=== PATIENT | female | born 1995 | race Caucasian/White ===

== ENCOUNTER 2017-07-08 11:56 | Emergency (ER) | payer SELFPAY ==
[2017-07-08 12:49] VITALS: BP 107/70
[2017-07-08 14:01] LABS: Bacteria,Urine 2+ /HPF (Negative); Bilirubin,Urine NEG (Negative); Blood,Urine NEG (Negative); Ketones,Urine 20 mg/dL (Negative); Leukocyte Esterase,Urine SM (Negative); Mucus,Urine 3+ /HPF; Nitrite,Urine NEG (Negative); Protein,Urine <15 mg/dL mg/dL (Negative); Urobilinogen,Urine < 2.0 mg/dL (<2.0)
== END 2017-07-08 13:40 | disposition left against medical advice (07) ==
LOC: ED 11:56
DX: Z53.21 Procedure and treatment not carried out due to patient leaving prior to being seen by health care provider (principal)
CPT/HCPCS: 81001

== ENCOUNTER 2018-12-20 18:59 | Emergency (ER) | payer OTHER ==
[2018-12-20 19:35] VITALS: BP 134/83
--- NOTE | 2018-12-20 19:35 | Emergency Department Report ---
Chief Complaint: Abdominal Pain Stated Complaint: LOWER ABD PAIN Time Seen by Provider: 12/20/18 19:32 - HPI History of Present Illness: This is a 23 y.o. female that presents with lower abdominal pain prior to LMP. Patient reports pain as cramping sensation. LMP 12/15/18, 0. - ROS Review of Systems: lower abdominal pain - Exam Vital Signs: Vital Signs 12/20/18 19:32 Temperature 98.5 F Pulse Rate 87 Respiratory 16 Rate Blood Pressure 134/83 O2 Sat by Pulse 100 Oximetry MSE screening note: Focused history and physical exam performed. Due to findings the following was ordered: labs fast track for further evaluation. ED Disposition for MSE Condition: Stable Instructions: Abdominal Pain (ED)
[2018-12-20 20:03] LABS: Basophils % (Auto) 0.7 % (0.0-1.8); Eosinophils # (Auto) 0.1 K/mm3 (0.0-0.4); Eosinophils % (Auto) 1.8 % (0.0-4.3); Hematocrit 39.9 % (30.3-42.9); Hemoglobin 13.4 gm/dl (10.1-14.3); Lymphocytes % (Auto) 28.1 % (13.4-35.0); Mean Corpuscular HGB Conc 33 % (30-34); Mean Corpuscular Volume 86 fl (79-97); Monocytes # (Auto) 0.5 K/mm3 (0.0-0.8); Monocytes % (Auto) 6.7 % (0.0-7.3); Platelet Count 290 K/mm3 (140-440); Red Blood Count 4.63 M/mm3 (3.65-5.03); Red Cell Distribution Width 13.9 % (13.2-15.2)
[2018-12-20 20:23] LABS: Alanine Aminotransferase 12 units/L (7-56); Albumin 4.3 g/dL (3.9-5); BUN/Creatinine Ratio 13; Blood Urea Nitrogen 10 mg/dL (7-17); Calcium 9.5 mg/dL (8.4-10.2); Hemolysis Index 5
[2018-12-20 21:14] LABS: Bilirubin,Urine NEG (Negative); Blood,Urine LG (Negative); Color,Urine Amber (Yellow); Mucus,Urine 2+ /HPF; Urobilinogen,Urine < 2.0 mg/dL (<2.0)
[2018-12-20 21:15] LABS: HCG Qualitative,Urine Negative (Negative); RBC,Urine > 182.0 /HPF (0.0-6.0)
--- NOTE | 2018-12-20 22:54 | Emergency Department Report ---
ED Female HPI - General Chief complaint: Abdominal Pain Stated complaint: LOWER ABD PAIN Time Seen by Provider: 12/20/18 19:32 Source: patient Mode of arrival: Ambulatory Limitations: No Limitations - History of Present Illness Initial comments: This is a 23-year-old female presents to the ED stating that she has makes rinsing urinary frequency with some slight dysuria for the past week. Patient also states that she has some spotting vaginally but she chews that her cycle 2 days ago. Sign she denies nausea vomiting, fever, pelvic pain, abnormal bleeding MD Complaint: dysuria - Related Data Previous Rx's Medication Instructions Recorded Last Taken Type Fluconazole [Diflucan TAB] 150 mg PO ONCE #1 tablet 12/20/18 Unknown Rx Sulfamethoxazole/Trimethoprim 1 each PO BID #14 tablet 12/20/18 Unknown Rx [Bactrim DS TAB] Allergies Allergy/AdvReac Type Severity Reaction Status Date / Time No Known Allergies Allergy Unverified 07/08/17 12:50 ED Review of Systems ROS: Stated complaint: LOWER ABD PAIN Other details as noted in HPI Comment: All other systems reviewed and negative ED Past Medical Hx - Past Medical History Previous Medical History?: No - Surgical History Past Surgical History?: No - Social History Smoking Status: Current Every Day Smoker Substance Use Type: Alcohol - Medications Home Medications: Home Medications Medication Instructions Recorded Confirmed Last Taken Type Fluconazole [Diflucan TAB] 150 mg PO ONCE #1 tablet 12/20/18 Unknown Rx Sulfamethoxazole/Trimethoprim 1 each PO BID #14 tablet 12/20/18 Unknown Rx [Bactrim DS TAB] ED Physical Exam - General Limitations: No Limitations General appearance: alert, in no apparent distress - Head Head exam: Present: atraumatic, normocephalic - Eye Eye exam: Present: normal appearance - ENT ENT exam: Present: mucous membranes moist - Neck Neck exam: Present: normal inspection - Respiratory Respiratory exam: Present: normal lung sounds bilaterally. Absent: respiratory distress - Cardiovascular Cardiovascular Exam: Present: regular rate, normal rhythm. Absent: systolic murmur, diastolic murmur, rubs, gallop - GI/Abdominal GI/Abdominal exam: Present: soft, normal bowel sounds. Absent: distended, tenderness, guarding, rebound - Extremities Exam Extremities exam: Present: normal inspection - Back Exam Back exam: Present: normal inspection - Neurological Exam Neurological exam: Present: alert, oriented X3 - Psychiatric Psychiatric exam: Present: normal affect, normal mood - Skin Skin exam: Present: warm, dry, intact, normal color. Absent: rash ED Course Vital Signs 12/20/18 19:32 Temperature 98.5 F Pulse Rate 87 Respiratory 16 Rate Blood Pressure 134/83 O2 Sat by Pulse 100 Oximetry ED Medical Decision Making - Lab Data Result diagrams: 12/20/18 19:52 12/20/18 19:52 Laboratory Tests 12/20/18 12/20/18 12/20/18 19:52 19:52 20:45 WBC 7.2 RBC 4.63 Hgb 13.4 Hct 39.9 MCV 86 MCH 29 MCHC 33 RDW 13.9 Plt Count 290 Lymph % (Auto) 28.1 [place] % (Auto) 6.7 Eos % (Auto) 1.8 Baso % (Auto) 0.7 Lymph # 2.0 [place] # 0.5 Eos # 0.1 Baso # 0.0 Seg Neutrophils % 62.7 Seg Neutrophils # 4.5 Sodium 140 Potassium 4.1 Chloride 102.6 Carbon Dioxide 27 Anion Gap 15 BUN 10 Creatinine 0.8 Estimated GFR > 60 BUN/Creatinine Ratio 13 Glucose 96 Calcium 9.5 Total Bilirubin 0.50 AST 17 ALT 12 Alkaline Phosphatase 82 Total Protein 7.9 Albumin 4.3 Albumin/Globulin Ratio 1.2 Urine Color Azucena Urine Turbidity Cloudy Urine pH 5.0 Ur Specific [place] 1.031 H Urine Protein 100 mg/dl Urine Glucose (UA) Neg Urine Ketones Neg Urine Blood Lg Urine Nitrite Neg Urine Bilirubin Neg Urine Urobilinogen < 2.0 Ur Leukocyte Esterase Mod Urine WBC (Auto) 97.0 H Urine RBC (Auto) > 182.0 U Epithel Cells (Auto) 3.0 Urine Mucus 2+ Urine Yeast (Budding) 3+ Urine HCG, Qual Negative - Medical Decision Making 23-year-old male presents with a urinary tract infection ED course: Patient received an antibiotic dose and Motrin during ED stay CBC, CMP within normal limits I discussed this findings with the patient. Patient is in no acute distress, patient also has on instructions were given to her. Discussed follow-up with primary care physician. Critical care attestation.: If time is entered above; I have spent that time in minutes in the direct care of this critically ill patient, excluding procedure time. ED Disposition Clinical Impression: UTI (urinary tract infection) Disposition: DC- TO HOME OR SELFCARE Is pt being admited?: No Does the pt Need Aspirin: No Condition: Stable Instructions: Abdominal Pain (ED), Urinary Tract Infection in Women (ED) Additional Instructions: Make sure to follow up with the primary care physician as discussed. Take all your medications as you've been prescribed. If you have any worsening symptoms or develop new symptoms please return to ED immediately. Prescriptions: Sulfamethoxazole/Trimethoprim [Bactrim DS TAB] 1 each PO BID #14 tablet Fluconazole [Diflucan TAB] 150 mg PO ONCE #1 tablet Referrals: PRIMARY CAREMD [Primary Care Provider] - 3-5 Days ALIYAH DIEHL MD [Referring] - 3-5 Days [facility] [Outside] - 3-5 Days [facility] [Outside] - 3-5 Days Forms: Accompanied Note, Work/School Release Form(ED) Time of Disposition: 23:06
== END 2018-12-20 23:17 | disposition home or self-care (01) ==
LOC: ED 18:59
DX: N39.0 Urinary tract infection, site not specified (principal); F17.200 Nicotine dependence, unspecified, uncomplicated
CPT/HCPCS: 36415; 80053; 81001; 81025; 85025

== ENCOUNTER 2019-01-17 20:37 | Emergency (ER) | payer OTHER ==
--- NOTE | 2019-01-17 21:27 | Emergency Department Report ---
Blank Doc - Documentation Documentation: This is a 23-year-old female that presents with left hand lac. This initial assessment/diagnostic orders/clinical plan/treatment(s) is/are subject to change based on patient's health status, clinical progression and re- assessment by fellow clinical providers in the ED. Further treatment and workup at subsequent clinical providers discretion. Patient/guardians urged not to elope from the ED as their condition may be serious if not clinically assessed and managed. Initial orders include: 1- Patient sent to [facility] for further evaluation and treatment
[2019-01-17 21:29] VITALS: BP 123/60
[2019-01-17] MEDS ORDERED: KEFLEX PO ONE (23:56)
[2019-01-17] MEDS ORDERED: NORCO 5/325 PO ONE (23:56)
[2019-01-17] MEDS ORDERED: BOOSTRIX IM ONE (23:56)
--- NOTE | 2019-01-18 01:21 | Emergency Department Report ---
ED Laceration HPI - HPI Chief Complaint: Wound/Laceration Stated Complaint: LEFT HAND LAC Time Seen by Provider: 01/17/19 21:27 Location: Upper Extremity Tetanus Status: Not up to Date (good) Laceration Symptoms: Yes Pain, No Foreign Body Sensation, No Numbness, No Weakness Other History: This is a 23-year-old female that presents with left hand lac. left index finger superficial laceration versus box toe flanger stitchdowns, no never tendon or mucle involvment ED Review of Systems ROS: Stated complaint: LEFT HAND LAC Other details as noted in HPI Constitutional: denies: chills, fever Eyes: denies: eye pain, eye discharge, vision change ENT: denies: ear pain, throat pain Respiratory: denies: cough, shortness of breath, wheezing Cardiovascular: denies: chest pain, palpitations Endocrine: no symptoms reported Gastrointestinal: denies: abdominal pain, nausea, diarrhea Genitourinary: denies: urgency, dysuria, discharge Musculoskeletal: denies: back pain, joint swelling, arthralgia Skin: other (laceration left index finger ). denies: rash, lesions Neurological: denies: headache, weakness, paresthesias Psychiatric: denies: anxiety, depression Hematological/Lymphatic: as per HPI (via). denies: easy bleeding, easy bruising ED Past Medical Hx - Past Medical History Previous Medical History?: No - Surgical History Past Surgical History?: No - Social History Smoking Status: Current Every Day Smoker Substance Use Type: Marijuana - Medications Home Medications: Home Medications Medication Instructions Recorded Confirmed Last Taken Type Fluconazole [Diflucan TAB] 150 mg PO ONCE #1 tablet 12/20/18 Unknown Rx Sulfamethoxazole/Trimethoprim 1 each PO BID #14 tablet 12/20/18 Unknown Rx [Bactrim DS TAB] cephALEXin [Keflex] 500 mg PO Q8HR 10 Days #30 cap 01/18/19 Unknown Rx traMADol [Ultram] 50 mg PO Q6HR PRN #12 tablet 01/18/19 Unknown Rx Laceration Physical Exam - Exam General: Vital signs noted. No distress. Alert and acting appropriately. Wound Length (cm): 3 (superficial laceration) Laceration Location: Upper Extremity Laceration Exam: Yes Normal Distal CMS, No Foreign Body, No Exposed Tendon, Vessel, or Nerve, No Tendon Injury ED Course Vital Signs 01/17/19 21:27 Temperature 98.3 F Pulse Rate 79 Respiratory 14 Rate Blood Pressure 123/60 O2 Sat by Pulse 100 Oximetry - Laceration /Wound Repair Left Volar Finger Wound Location: upper extremity Wound Length (cm): 3 Wound's Depth, Shape: superficial Wound Explored: clean Irrigated w/ Saline (ccs): 20 Betadine Prep?: Yes Wound Debrided: none required Wound Repaired With: Steri-strips, Dermabond Progress: all bleeding controlled edges well approximated pt given wound care instructions verbalized understanding of same. ED Medical Decision Making - Medical Decision Making superficial laceration repair see procedure note dc to home with rx for keflex, ultram follow up with pcp in 2 days for wound check pt verbalized agreement and understanding of same dc to home in stable condition at this time. Critical care attestation.: If time is entered above; I have spent that time in minutes in the direct care of this critically ill patient, excluding procedure time. ED Disposition Clinical Impression: Laceration of finger of left hand Qualifiers: Encounter type: initial encounter Finger: index finger Damage to nail status: without damage Foreign body presence: without foreign body Qualified Code(s): S61.211A - Laceration without foreign body of left index finger without damage to nail, initial encounter Disposition: DC-01 TO HOME OR SELFCARE Is pt being admited?: No Does the pt Need Aspirin: No Condition: Stable Instructions: Laceration (ED), Skin Adhesive Care (ED) Prescriptions: cephALEXin [Keflex] 500 mg PO Q8HR 10 Days #30 cap traMADol [Ultram] 50 mg PO Q6HR PRN #12 tablet PRN Reason: Pain Referrals: [facility] [Outside] - 3-5 Days Forms: Work/School Release Form(ED) Time of Disposition: 01:25
== END 2019-01-18 01:30 | disposition home or self-care (01) ==
LOC: ED 20:37
DX: S61.211A Laceration without foreign body of left index finger without damage to nail, initial encounter (principal); F17.200 Nicotine dependence, unspecified, uncomplicated; F12.10 Cannabis abuse, uncomplicated; W45.8XXA Other foreign body or object entering through skin, initial encounter; Y93.89 Activity, other specified; Y92.89 Other specified places as the place of occurrence of the external cause; Y99.8 Other external cause status
CPT/HCPCS: 90471; 90715; 99282

== ENCOUNTER 2019-08-19 17:00 | Emergency (ER) | payer SELFPAY ==
[2019-08-19 18:45] VITALS: BP 112/50
--- NOTE | 2019-08-19 18:46 | Event Note ---
ED Screening Note Date of service: 08/19/19 Time: 18:45 ED Screening Note: Pt complains of left finger pain x 2 days +paronychia noted This initial assessment/diagnostic orders/clinical plan/treatment(s) is/are subject to change based on patients health status, clinical progression and re-assessment by fellow clinical providers in the ED. Further treatment and workup at subsequent clinical providers discretion. Patient/guardian urged not to elope from the ED as their condition may be serious if not clinically assessed and managed. Initial orders include:
[2019-08-19] MEDS ORDERED: IBUPROFEN 800 MG TAB PO ONE (20:35)
[2019-08-19] MEDS ORDERED: CLINDAMYCIN 300 MG CAP PO ONE (20:35)
[2019-08-19] MEDS ORDERED: traMADol 50 MG TAB PO ONE (20:36)
--- NOTE | 2019-08-19 20:40 | Emergency Department Report ---
ED Extremity Problem HPI - General Chief complaint: Extremity Problem,Nontraumatic Stated complaint: R FINGER SWOLLEN Time Seen by Provider: 08/19/19 18:45 Source: patient Mode of arrival: Ambulatory Limitations: No Limitations - History of Present Illness Initial comments: This is a 24-year-old asthmatic female who had her right index finger caught in a door 2 days ago. The patient states since then she has had some increased pain and swelling to the distal tip around the nail bed. Patient states that this point the pain is 10 out of 10 as aching and throbbing. She denies fevers and chills cough, congestion at this time. Patient has full range of motion to her finger. - Related Data Previous Rx's Medication Instructions Recorded Last Taken Type Fluconazole [Diflucan TAB] 150 mg PO ONCE #1 tablet 12/20/18 Unknown Rx Sulfamethoxazole/Trimethoprim 1 each PO BID #14 tablet 12/20/18 Unknown Rx [Bactrim DS TAB] cephALEXin [Keflex] 500 mg PO Q8HR 10 Days #30 cap 01/18/19 Unknown Rx traMADol [Ultram] 50 mg PO Q6HR PRN #12 tablet 01/18/19 Unknown Rx Clindamycin [Clindamycin CAP] 300 mg PO Q8H #21 cap 08/19/19 Unknown Rx Ibuprofen [Motrin 600 MG tab] 600 mg PO Q8H PRN #20 tablet 08/19/19 Unknown Rx traMADol [Ultram] 50 mg PO Q6HR PRN #12 tablet 08/19/19 Unknown Rx Allergies Allergy/AdvReac Type Severity Reaction Status Date / Time No Known Allergies Allergy Unverified 07/08/17 12:50 ED Review of Systems ROS: Stated complaint: R FINGER SWOLLEN Other details as noted in HPI Comment: All other systems reviewed and negative ED Past Medical Hx - Past Medical History Previous Medical History?: No - Surgical History Past Surgical History?: No - Social History Smoking Status: Never Smoker Substance Use Type: Alcohol - Medications Home Medications: Home Medications Medication Instructions Recorded Confirmed Last Taken Type Fluconazole [Diflucan TAB] 150 mg PO ONCE #1 tablet 12/20/18 Unknown Rx Sulfamethoxazole/Trimethoprim 1 each PO BID #14 tablet 12/20/18 Unknown Rx [Bactrim DS TAB] cephALEXin [Keflex] 500 mg PO Q8HR 10 Days #30 cap 01/18/19 Unknown Rx traMADol [Ultram] 50 mg PO Q6HR PRN #12 tablet 01/18/19 Unknown Rx Clindamycin [Clindamycin CAP] 300 mg PO Q8H #21 cap 08/19/19 Unknown Rx Ibuprofen [Motrin 600 MG tab] 600 mg PO Q8H PRN #20 tablet 08/19/19 Unknown Rx traMADol [Ultram] 50 mg PO Q6HR PRN #12 tablet 08/19/19 Unknown Rx ED Physical Exam - General Limitations: No Limitations General appearance: alert, in no apparent distress - Head Head exam: Present: atraumatic, normocephalic - Eye Eye exam: Present: normal appearance, PERRL, EOMI - Neck Neck exam: Present: normal inspection, full ROM - Expanded Upper Extremity Exam Right Hand L/R Back: 1 - Mild erythema and swelling adjacent to the nail. There is a half a centimeter area of possible fluctuance. - Neurological Exam Neurological exam: Present: alert, oriented X3 - Psychiatric Psychiatric exam: Present: normal affect, normal mood - Skin Skin exam: Present: warm, dry, intact, normal color. Absent: rash ED Course Vital Signs 08/19/19 17:26 Temperature 98.5 F Pulse Rate 91 H Respiratory 16 Rate Blood Pressure 112/50 O2 Sat by Pulse 99 Oximetry ED Medical Decision Making - Medical Decision Making With early paronychia. Patient started on antibiotics given pain meds and she can continue warm water soaks. Critical care attestation.: If time is entered above; I have spent that time in minutes in the direct care of this critically ill patient, excluding procedure time. ED Disposition Clinical Impression: Paronychia Disposition: DC-01 TO HOME OR SELFCARE Is pt being admited?: No Does the pt Need Aspirin: No Condition: Stable Instructions: Paronychia (ED) Referrals: PRIMARY CARE, [Primary Care Provider] - 3-5 Days Forms: Work/School Release Form(ED) Time of Disposition: 20:39
== END 2019-08-19 21:18 | disposition home or self-care (01) ==
LOC: ED 17:00
DX: L03.011 Cellulitis of right finger (principal); Z79.899 Other long term (current) drug therapy

== ENCOUNTER 2021-12-18 17:51 | Emergency (ER) | payer SELFPAY ==
[2021-12-18] MEDS ORDERED: diazePAM 5 MG TAB PO ONE (23:01)
[2021-12-18] MEDS ORDERED: KETOROLAC 60 MG/2 ML INJ IM ONE (23:01)
[2021-12-18] MEDS ORDERED: dexAMETHasone 20 MG/5 ML VIAL IM ONE (23:01)
--- NOTE | 2021-12-18 23:50 | Emergency Department Report ---
ED Back Pain/Injury HPI - General Chief Complaint: Back Pain/Injury Stated Complaint: BACK PAIN Source: patient Limitations: No Limitations - History of Present Illness Initial Comments: Patient is a 26-year-old -Serbian female with a history of morbid obesity presents to the ED with complaint of acute onset persistent nontraumatic low back pain that radiates to the left leg for the last 12 hours. Patient states that she woke up with a low back pain over 12 hours ago and that the pain has been persistent and radiates to the left leg. Patient denies heavy lifting, fall, traumatic injury, chest pain or shortness of breath, abdominal pain, dysuria, urinary frequency and urgency, fever, chills, numbness and tingling or weakness of lower extremities bilaterally or saddle paresthesia. MD Complaint: back pain (low back pain radiating to left leg), other -: Sudden, hour(s) (12) Similar Symptoms Previously: No Place: home Radiation: left leg Severity: severe Severity scale (0 -10): 7 Quality: sharp, aching Consistency: constant Improves With: none Worsens With: movement, walking Context: turning/twisting Associated Symptoms: denies other symptoms. denies: confusion, weakness, numbness, difficulty walking, cough, difficulty urinating, diaphoresis, incontinence, fever/chills, headaches, abdominal pain, loss of appetite, nausea/vomiting, rash, shortness of breath, syncope - Related Data Previous Rx's Medication Instructions Recorded Last Taken Type Fluconazole (Nf) [Diflucan TAB] 150 mg PO ONCE #1 tablet 12/20/18 Unknown Rx Sulfamethoxazole/Trimethoprim 1 each PO BID #14 tablet 12/20/18 Unknown Rx [Bactrim DS TAB] cephALEXin [Keflex] 500 mg PO Q8HR 10 Days #30 cap 01/18/19 Unknown Rx Clindamycin [Clindamycin CAP] 300 mg PO Q8H #21 cap 08/19/19 Unknown Rx Ibuprofen [Motrin 600 MG tab] 600 mg PO Q8H PRN #20 tablet 08/19/19 Unknown Rx traMADoL [Ultram] 50 mg PO Q6HR PRN #12 tablet 08/19/19 Unknown Rx Ibuprofen [Motrin] 800 mg PO Q8HR PRN #30 tablet 12/18/21 Unknown Rx methOCARBAMOL [Robaxin TAB] 750 mg PO Q8H PRN #30 tab 12/18/21 Unknown Rx predniSONE [Deltasone] 60 mg PO QDAY #15 tab 12/18/21 Unknown Rx traMADoL [Ultram 50 MG tab] 50 mg PO Q6HR PRN #12 tablet 12/18/21 Unknown Rx Allergies Allergy/AdvReac Type Severity Reaction Status Date / Time No Known Allergies Allergy Verified 12/18/21 19:37 ED Review of Systems ROS: Stated complaint: BACK PAIN Other details as noted in HPI Constitutional: denies: chills, fever Eyes: denies: eye pain, eye discharge, vision change ENT: denies: ear pain, throat pain Respiratory: denies: cough, shortness of breath, wheezing Cardiovascular: denies: chest pain, palpitations Endocrine: no symptoms reported Gastrointestinal: denies: abdominal pain, nausea, diarrhea Genitourinary: denies: urgency, dysuria, discharge Musculoskeletal: back pain (lower back pain), arthralgia, myalgia. denies: joint swelling Skin: denies: rash, lesions Neurological: denies: headache, weakness, paresthesias Psychiatric: denies: anxiety, depression Hematological/Lymphatic: denies: easy bleeding, easy bruising ED Past Medical Hx - Past Medical History Previous Medical History?: Yes Additional medical history: Morbid obesity - Surgical History Past Surgical History?: No - Social History Smoking Status: Never Smoker Substance Use Type: Alcohol - Medications Home Medications: Home Medications Medication Instructions Recorded Confirmed Last Taken Type Fluconazole (Nf) [Diflucan TAB] 150 mg PO ONCE #1 tablet 12/20/18 Unknown Rx Sulfamethoxazole/Trimethoprim 1 each PO BID #14 tablet 12/20/18 Unknown Rx [Bactrim DS TAB] cephALEXin [Keflex] 500 mg PO Q8HR 10 Days #30 cap 01/18/19 Unknown Rx Clindamycin [Clindamycin CAP] 300 mg PO Q8H #21 cap 08/19/19 Unknown Rx Ibuprofen [Motrin 600 MG tab] 600 mg PO Q8H PRN #20 tablet 08/19/19 Unknown Rx traMADoL [Ultram] 50 mg PO Q6HR PRN #12 tablet 08/19/19 Unknown Rx Ibuprofen [Motrin] 800 mg PO Q8HR PRN #30 tablet 12/18/21 Unknown Rx methOCARBAMOL [Robaxin TAB] 750 mg PO Q8H PRN #30 tab 12/18/21 Unknown Rx predniSONE [Deltasone] 60 mg PO QDAY #15 tab 12/18/21 Unknown Rx traMADoL [Ultram 50 MG tab] 50 mg PO Q6HR PRN #12 tablet 12/18/21 Unknown Rx ED Physical Exam - General Limitations: No Limitations General appearance: alert, in no apparent distress - Head Head exam: Present: atraumatic, normocephalic, normal inspection - Eye Eye exam: Present: normal appearance, PERRL, EOMI Pupils: Present: normal accommodation - ENT ENT exam: Present: normal exam, normal orophraynx, mucous membranes moist, TM's normal bilaterally, normal external ear exam - Neck Neck exam: Present: normal inspection, full ROM - Respiratory Respiratory exam: Present: normal lung sounds bilaterally. Absent: respiratory distress, wheezes, rales, rhonchi, chest wall tenderness, accessory muscle use, decreased breath sounds, prolonged expiratory, other - Cardiovascular Cardiovascular Exam: Present: regular rate, normal rhythm, normal heart sounds. Absent: systolic murmur, diastolic murmur, rubs, gallop - GI/Abdominal GI/Abdominal exam: Present: soft, normal bowel sounds. Absent: tenderness, guarding, rebound, hyperactive bowel sounds, hypoactive bowel sounds, organomegaly, mass - Extremities Exam Extremities exam: Present: normal inspection, full ROM, normal capillary refill. Absent: tenderness, pedal edema, joint swelling, calf tenderness - Back Exam Back exam: Present: normal inspection, full ROM, tenderness (Palpable lumbosacral paraspinal musculoskeletal tenderness), muscle spasm, paraspinal tenderness. Absent: CVA tenderness (R), vertebral tenderness - Neurological Exam Neurological exam: Present: alert, oriented X3, CN II-XII intact, normal gait, reflexes normal - Psychiatric Psychiatric exam: Present: normal affect, normal mood - Skin Skin exam: Present: warm, dry, intact, normal color. Absent: rash ED Course Vital Signs 12/18/21 12/18/21 19:35 23:40 Temperature 98.1 F Pulse Rate 73 Respiratory 18 16 Rate Blood Pressure 126/75 [Left] O2 Sat by Pulse 100 Oximetry ED Medical Decision Making - Medical Decision Making This is a 26-year-old -Serbian female with a history of morbid obesity presents to the ED with complaint of acute onset persistent nontraumatic low back pain that radiates to the left leg for the last 12 hours. Patient states that she woke up with a low back pain over 12 hours ago and that the pain has been persistent and radiates to the left leg. In the ED, patient is alert and oriented x3 and is not in any distress. Patient was treated for pain in the ED and on reevaluation, patient's pain is well controlled medication. Patient was discharged home on pain medications and muscle relaxants and advised to follow- up with her primary care physician in 7 to 10 days for reevaluation or return to the ED immediately if symptoms get worse. - Differential Diagnosis muscle spasm; muscle strain; sciatica; Critical care attestation.: If time is entered above; I have spent that time in minutes in the direct care of this critically ill patient, excluding procedure time. ED Disposition Clinical Impression: Spasm of muscle of lower back, Strain of muscle, fascia and tendon of lower back, initial encounter Acute low back pain with left-sided sciatica Qualifiers: Back pain laterality: left Qualified Code(s): M54.42 - Lumbago with sciatica, left side Disposition: 01 HOME / SELF CARE / HOMELESS Is pt being admited?: No Does the pt Need Aspirin: No Condition: Stable Instructions: Muscle Cramps and Spasms, [id number], Muscle Strain, Easy-to- Read, Sciatica, [id number], Low Back Sprain or Strain Rehab-SportsMed Additional Instructions: Your symptoms are likely due to musculoskeletal pain, and characterized by s ciatica which is a lumbar radiculopathy affecting the nerves of your low back. Therefore take pain medications and muscle relaxants as advised with food, drink plenty of fluids and follow-up with your primary care physician in 7 to 10 days for reevaluation. Return to the ED immediately if symptoms get worse Prescriptions: predniSONE [Deltasone] 60 mg PO QDAY #15 tab Ibuprofen [Motrin] 800 mg PO Q8HR PRN #30 tablet PRN Reason: Pain , Severe (7-10) methOCARBAMOL [Robaxin TAB] 750 mg PO Q8H PRN #30 tab PRN Reason: Muscle Spasm traMADoL [Ultram 50 MG tab] 50 mg PO Q6HR PRN #12 tablet PRN Reason: Pain Referrals: [facility] [Provider Group] - 7-10 days Time of Disposition: 23:53 Print Language: DIVEHI
[2021-12-19 00:55] VITALS: BP 111/57
== END 2021-12-19 00:57 | disposition home or self-care (01) ==
LOC: ED 17:51
DX: S39.012A Strain of muscle, fascia and tendon of lower back, initial encounter (principal); M54.42 Lumbago with sciatica, left side; M62.830 Muscle spasm of back; Z72.89 Other problems related to lifestyle; X50.1XXA Overexertion from prolonged static or awkward postures, initial encounter; Y93.89 Activity, other specified; Y92.89 Other specified places as the place of occurrence of the external cause; Y99.8 Other external cause status
CPT/HCPCS: 96372; 99282; J1100; J1885